=== PATIENT | female | born 1975 | race Caucasian/White ===

== ENCOUNTER 2022-02-18 07:19 | Day surgery (SDC) | payer OTHER ==
[~2022-02-18] VITALS: Ht 175.3 cm; Wt 123.0 kg
[~2022-02-18 07:19] MED LIST: BUPROPION XL300 MG PO; COZAAR25 MG PO; EFFEXOR XR75 MG PO; MIRENA1 EACH IY; NAPROXEN500 MG PO; OMEPRAZOLE20 MG PO; ONDANSETRON HCL4 MG PO
--- NOTE | 2022-02-18 07:45 | NUR ---
BOTH NARES SWABBED FOR COVID-19 WITHOUT COMPLICATION. SAMPLE TAKEN TO LAB.
--- NOTE | 2022-02-18 10:20 | NUR ---
02/18/22 1020 Sheets,Brianna 1015 PT ARRIVED TO PACU WITH MICROMATIC HONE OPERATOR AT BEDSIDE, PT ASLEEP AND ORAL AIRWAY IN PLACE. PT NONAROUSABLE AND DECREASED BP. MICROMATIC HONE OPERATOR GIVING BP MEDICATION. 1020 BP INCREASED.
--- NOTE | 2022-02-19 07:04 | OR ---
[facility] [address] [place], [place] [address] Signed DATE OF OPERATION: 02/18/2022 SURGEON: Rashi Jarvis MD PREOPERATIVE DIAGNOSES: 1. History of peptic ulcer disease. 2. History of chronic diarrhea for many years, now with loose stool and mucus. 3. Post cholecystectomy right upper quadrant abdominal pain and generalized abdominal pain. 4. Heartburn with nausea and vomiting. 5. Paternal grandfather and maternal grandmother with colon cancer. POSTOPERATIVE DIAGNOSES: 1. Moderate-sized hiatal hernia (45-38 cm). 2. GE junction at 38 cm. 3. Small rectal polyps x2 at 6 cm. PROCEDURES: 1. Esophagogastroduodenoscopy with CLOtest and biopsies of the duodenum, pyloric bulb, antrum, and GE junction. 2. Colonoscopy with a random cold biopsies of the terminal ileum and colon as well as cold polypectomy. ESTIMATED BLOOD LOSS: None. INDICATIONS: Kayce is a 46-year-old obese female, who comes to the office with her . She was asked to see me for upper and lower endoscopy. She spoke of having COVID last year. She had has never been the same since. She describes stroke-like symptoms on her left face, eye, and upper extremity. She is not sure that her vision is quite completely recovered. She is describing fatigue as well. They took her off Adderall for the ADHD and send her to the studio technician video operator in [place] in December of 2021. Her echocardiogram and stress tests were unremarkable. She is going to see the interventional neuroradiologist in [place] for cerebral angiogram. She had been to her neurologist previously, and apparently has a mild neurocognitive disorder. She is now on disability. She has been under tremendous stress since 2011, but she said it really came to a combination with all the COVID issues. She had mention bleeding ulcers in the past. She said she has had chronic diarrhea for years. More recently, she is having loose stool with mucus 4-5 times a day. She had her gallbladder removed many years ago in [place], [place]. She Electronically Signed By: RASHI JARVIS MD 02/19/22 0704 PATIENT NAME: KAYCE JOHNSON OPERATIVE REPORT DATE OF : 77 REPORT #: [id number] PHYSICIAN: RASHI JARVIS MD PCP: JERRY JIMÉNEZ MD REPORT IS CONFIDENTIAL AND NOT TO BE RELEASED WITHOUT AUTHORIZATION [facility] [address] [place] [id number] Signed required an ERCP to remove common bile duct stones. She thinks maybe the ERCP was performed in [place], [place]. She describes having right upper quadrant abdominal pain and generalized abdominal pain. She does not relate it to food. She is not jaundiced. She describes heartburn and some nausea and vomiting as well. She never completed the stool studies. Her paternal grandfather and maternal grandmother had colon cancer. She has been using omeprazole and it seems of help some. She uses naproxen as needed. She has been on bupropion as well. In the office, I gave her a pamphlet on both upper and lower endoscopy. We reviewed the nature of the two tests. There is risk including, but not limited to gas bloating, crampy abdominal pain, bleeding, perforation requiring surgery, and missed diagnosis. She has been off her Adderall, we decided we would try with our standard Versed and fentanyl for her IV conscious sedation. She and her had expressed understanding and wished to proceed. DESCRIPTION OF PROCEDURE: Kayce was taken into our endoscopy suite and placed in the supine semi-recumbent position. She was given 9 mg of Versed and 100 mcg of fentanyl without any perceived effect whatsoever. We called in our anesthesia provider to help add propofol. Even then she took a large doses of propofol, but eventually she was just sedated, we were able to proceed. A bite block was utilized. The adult colonoscope was introduced and advanced down to the third portion of the duodenum. The duodenum and pyloric channel were unremarkable. We took a biopsy of the duodenum, pyloric channel due to the history of diarrhea. We took biopsies of the antrum for CLOtest as well as pathologic review. Upon retroflexion of scope, she appears to have a moderate-sized hiatal hernia. It was a little difficult to measure, but it seems to measure 45 cm back to 38 cm. Of course, that places the GE junction at 38 cm. She had some mild inflammatory changes around her GE junction and so we took a biopsy in that area as well. There was no Hubbard's mucosa. No distal esophagitis. The middle and upper esophagus were unremarkable. After this, the gas had been suctioned out and the gastroscope removed. Kayce tolerated the upper endoscopy quite well after the propofol. Kayce was rotated into the left lateral decubitus position. She was maintained on IV propofol per our nurse claim adjuster. A digital rectal exam was performed and this was unremarkable. She has no external hemorrhoids. She had good sphincter tone, there were no masses. The adult colonoscope was introduced, advanced all around into the cecum under direct visualization of camera without difficulty. Her prep was quite excellent. We turned the colonoscope into the terminal ilium about 10 cm or so. It looked very healthy. We took a random biopsy of the terminal ileum due to the history of diarrhea. We brought the scope back into the colon. We had taken pictures throughout for photodocumentation. We took random cold biopsies in the colon because of the history of diarrhea. Otherwise, no inflammatory changes, no diverticulosis, no colonic polyps. The rectum was unremarkable. Upon retroflexion of the scope, there was really no Electronically Signed By: RASHI JARVIS MD 02/19/2204 PATIENT NAME: KAYCE JOHNSON OPERATIVE REPORT DATE OF : 77 REPORT #: [id number] PHYSICIAN: RASHI JARVIS MD PCP: JERRY JIMÉNEZ MD REPORT IS CONFIDENTIAL AND NOT TO BE RELEASED WITHOUT AUTHORIZATION [facility] [address] [place], [place] [address] Signed additional pathology noted above the anal canal. After this, the gas was suctioned out, colonoscope removed. Again, Kayce tolerated the procedure well with the propofol infusion. RECOMMENDATIONS: I will see Kayce back in my office in 7 to 14 days to review her results. This appears to be irritable bowel syndrome most likely. Rashi Jarvis MD ALB/MODL /[id number] cc: Rashi Jarvis MD Patient Chart Namrata Ortiz MD Copies: RASHI JARVIS MD ~ Electronically Signed By: RASHI JARVIS MD 02/19/22 0704 PATIENT NAME: KAYCE JOHNSON OPERATIVE REPORT DATE OF : 77 REPORT #: [id number] PHYSICIAN: RASHI JARVIS MD PCP: JERRY JIMÉNEZ MD REPORT IS CONFIDENTIAL AND NOT TO BE RELEASED WITHOUT AUTHORIZATION
--- NOTE | 2022-02-24 15:13 | PATH ---
[facility] [address] [facility] [place], [place] [address] Signed SPECIMEN(S): A DUODENAL BIOPSY SPECIMEN(S): B DUODENAL BULB BIOPSY SPECIMEN(S): C ANTRUM/PYLORUS BIOPSY SPECIMEN(S): D GE JUNCTION BIOPSY SPECIMEN(S): E TERMINAL ILEUM BIOPSY SPECIMEN(S): F COLON BIOPSY SPECIMEN(S): G RECTAL POLYP AT 7 CM SPECIMEN SOURCE: A. DUODENAL BIOPSY B. DUODENAL BULB BIOPSY C. ANTRUM/PYLORUS BIOPSY D. GE JUNCTION BIOPSY E. TERMINAL ILEUM BIOPSY F. COLON BIOPSY G. RECTAL POLYP AT 7 CM CLINICAL HISTORY: Abdominal pain; nausea and vomiting; GERD; diarrhea; family history of colon cancer FINAL PATHOLOGIC DIAGNOSIS: A. Duodenum, biopsy: - No significant histopathology. B. Duodenal bulb, biopsy: - No significant histopathology. C. Stomach, antrum/pylorus, biopsy: - Chemical gastropathy. D. GE junction, biopsy: - Chronic esophagitis. - No evidence of Hubbard's esophagus. E. Terminal ileum, biopsy: - Lymphoid hyperplasia. F. Colon, biopsy: - No significant histopathology. B. Rectum, 7 cm, polypectomy: - Hyperplastic polyps (2). - There is no evidence of dysplasia or malignancy. COMMENT: Regarding specimens A and B, the sections from the duodenal biopsies show PATIENT NAME: ZOË JOHNSON PATHOLOGY DATE OF : 77 REPORT #: [id number] PHYSICIAN: ROSEMARY PATHOLOGY PCP: JERRY JIMÉNEZ MD REPORT IS CONFIDENTIAL AND NOT TO BE RELEASED WITHOUT AUTHORIZATION [facility] [address] [place], [place] [address] Signed portions of duodenal mucosa with long finger-like villi. There is no villous atrophy, crypt hyperplasia or intraepithelial lymphocytosis, making a diagnosis of celiac disease unlikely. There is no evidence of peptic duodenitis, microorganisms, abnormal infiltrates or neoplasia. Regarding specimen C, these sections reveal features of mild chemical gastropathy. The gastric pits appear slightly irregular, and there is mild mucosal congestion. There is no evidence of acute or chronic inflammation. Chemical gastropathies are most commonly seen in individuals with alkaline reflux, exposure to drugs as well as other chemicals. There is no acute or chronic inflammation. There is no evidence of H. pylori, intestinal metaplasia, abnormal infiltrates or neoplasia. Regarding specimen D, the biopsy contains reactive appearing squamous mucosa with mild ballooning degeneration. Prominent vascular lakes are present in the papillae. There is no glandular tissue present. The changes are nonspecific and can be seen in a variety of settings including infections, gastroesophageal reflux disease or other forms of esophagitis. Regarding specimen E, the sections through the ileal biopsy show portions of ileal mucosa with lymphoid hyperplasia. There is no evidence of extension of the lymphoid infiltrate into the glands. There is no evidence of acute inflammation, granulomas, or abnormal microorganisms. No viral inclusions are seen. There is no evidence of neoplasia. Lymphoid hyperplasia frequently makes the terminal ileum appear nodular at the time of endoscopy. Regarding specimen F, the sections from the specimen contain architecturally normal colonic mucosa without crypt distortion. There is no acute or chronic inflammation. There is no evidence of microscopic colitis. There are no abnormal organisms or infiltrates. There are no polyps or neoplasms. TWK:[id number] MICROSCOPIC EXAMINATION: Histologic sections of all submitted blocks are examined by light microscopy. These findings, together with the gross examination, support the pathologic diagnosis. GROSS DESCRIPTION: Seven specimens are received in 7 containers, labeled "AM." PATIENT NAME: ZOË JOHNSON PATHOLOGY DATE OF : 77 REPORT #: [id number] PHYSICIAN: ROSEMARY AREVALO PCP: JERRY JIMÉNEZ MD REPORT IS CONFIDENTIAL AND NOT TO BE RELEASED WITHOUT AUTHORIZATION [facility] [address] [place], [place] [address] Signed A. The specimen, labeled "AM, 1," and designated on the requisition "duodenum biopsy," is received in formalin and consists of two gonzalez soft tissue fragments that measure 0.2 and 0.3 cm in greatest dimension. The specimen is entirely submitted in cassette (A1). B. The specimen, labeled "AM, 2," and designated on the requisition "duodenum bulb biopsy," is received in formalin and consists of one gonzalez soft tissue fragment that measures 0.3 cm in greatest dimension. The specimen is entirely submitted in cassette (B1). C. The specimen, labeled "AM, 3," and designated on the requisition "antrum/pylorus biopsy," is received in formalin and consists of one elongated gonzalez soft tissue fragment that measures 0.6 cm in greatest dimension. The specimen is entirely submitted in cassette (C1). D. The specimen, labeled "AM, 4," and designated on the requisition "EG junction biopsy," is received in formalin and consists of one elongated, gonzalez-white to gonzalez soft tissue fragment that measures 0.6 cm in greatest dimension. The specimen is entirely submitted in cassette (D1). E. The specimen, labeled "AM, 5," and designated on the requisition "terminal ileum biopsy," is received in formalin and consists of one gonzalez soft tissue fragment that measures 0.4 cm in greatest dimension. The specimen is entirely submitted in cassette (E1). F. The specimen, labeled "AM, 6," and designated on the requisition "colon biopsy," is received in formalin and consists of three gonzalez soft tissue fragments that measure 0.3 up to 0.5 cm in greatest dimension. The specimen is entirely submitted in cassette (F1). G. The specimen, labeled "AM, 7," and designated on the requisition "colon rectum polypectomy 7 cm," is received in formalin and consists of two polypoid gonzalez soft tissue fragments that measure 0.2 cm in greatest dimension. The specimen is entirely submitted in cassette (G1). AI (under the direct supervision of a pathologist) The Gross Description was prepared using a voice recognition system. The report was reviewed for accuracy; however, sound-alike word errors, addition and/or deletions may occur. If there is any question about this report, please contact Client Services. PERFORMING LABORATORY: The technical component was performed by [employer], [address] [place] [id number] (CLIA# [id number]). The professional interpretation was performed by [facility], [facility], [facility] [address] [address] (CLIA#: PATIENT NAME: OZË JOHNSON PATHOLOGY DATE OF : 77 REPORT #: [id number] PHYSICIAN: ROSEMARY AREVALO PCP: JERRY JIMÉNEZ MD REPORT IS CONFIDENTIAL AND NOT TO BE RELEASED WITHOUT AUTHORIZATION [facility] [address] [place] [address] Signed [id number]). Diagnostician: Carlos Ring MD Pathologist Electronically Signed 02/24/2022 Copies: ~ PATIENT NAME: ZOË JOHNSON PATHOLOGY DATE OF : 77 REPORT #: [id number] PHYSICIAN: ROSEMARY PATHOLOGY PCP: JERRY JIMÉNEZ MD REPORT IS CONFIDENTIAL AND NOT TO BE RELEASED WITHOUT AUTHORIZATION
== END 2022-02-18 10:55 | disposition home or self-care (01) ==
LOC: DS 07:19 → OPS 07:19 → DS 09:00 → OPS 09:00
PROVIDERS: ATTEND Colon & Rectal Surgery
PROC: 0DB48ZX Excision of Esophagogastric Junction, Via Natural or Artificial Opening Endoscopic, Diagnostic (ICD-10-PCS; 2022-02-18)
PROC: 0DBB8ZX Excision of Ileum, Via Natural or Artificial Opening Endoscopic, Diagnostic (ICD-10-PCS; 2022-02-18)
PROC: 0DB98ZX Excision of Duodenum, Via Natural or Artificial Opening Endoscopic, Diagnostic (ICD-10-PCS; principal; 2022-02-18 09:00)
PROC: 0DB68ZX Excision of Stomach, Via Natural or Artificial Opening Endoscopic, Diagnostic (ICD-10-PCS; 2022-02-18 09:00)
DX: K44.9 Diaphragmatic hernia without obstruction or gangrene (principal); K62.1 Rectal polyp; K52.9 Noninfective gastroenteritis and colitis, unspecified; E66.9 Obesity, unspecified; F41.9 Anxiety disorder, unspecified; F43.10 Post-traumatic stress disorder, unspecified; Z88.2 Allergy status to sulfonamides; Z80.0 Family history of malignant neoplasm of digestive organs; Z20.822 Contact with and (suspected) exposure to COVID-19; Z68.41 Body mass index [BMI] 40.0-44.9, adult; K31.9 Disease of stomach and duodenum, unspecified
CPT/HCPCS: 00731; 36415; 84702; 84703; 87077; C9803; J2250; J2704; J3010; J7121; U0003

== ENCOUNTER 2022-03-18 05:45 | Day surgery (SDC) | payer OTHER ==
[~2022-03-18] VITALS: Ht 175.3 cm; Wt 119.5 kg
--- NOTE | ~2022-03-18 | OR ---
[facility] [address] [place], [place] [address] Draft DATE OF OPERATION: 03/18/2022 SURGEON: Samy Judge DO PREOPERATIVE DIAGNOSES: 1. Abnormal uterine bleeding. 2. Thickened endometrium. 3. Endometrial polyp. POSTOPERATIVE DIAGNOSES: 1. Abnormal uterine bleeding. 2. Thickened endometrium. 3. Endometrial polyp. PROCEDURES PERFORMED: 1. Total laparoscopic hysterectomy. 2. Bilateral salpingectomy. 3. Cystoscopy. CRYOGENICS REPAIRER: Jeanine Gong D.O. ANESTHESIA: General. ESTIMATED BLOOD LOSS: 75 mL. SPECIMENS: Normal uterus, cervix and bilateral fallopian tubes. DRAINS: Arias to gravity. FINDINGS: Normal external genitalia, vagina, and cervix. On laparoscopy, normal uterus, tubes, and bilateral ovaries. Some oozing from multiple small paracervical vessels after colpotomy, they were made hemostatic. Good hemostasis and apical support at the end of the procedure. Normal bladder with bilateral ureteral jets appreciated on cystoscopy. PATIENT NAME: ZOË BUTTS OPERATIVE REPORT DATE OF : 77 REPORT #: [id number] PHYSICIAN: SAMY JDUGE DO PCP: JERRY JIMÉNEZ MD REPORT IS CONFIDENTIAL AND NOT TO BE RELEASED WITHOUT AUTHORIZATION [facility] [address] [place], [place] [address] Draft COMPLICATIONS: None. INDICATIONS: Mrs. Butts is a pleasant 46-year-old female with a long history of abnormal uterine bleeding. She had a Mirena IUD in an attempt to control bleeding that failed. Hysteroscopy demonstrated a thickened endometrium with endometrial polyp. Decision was made to proceed with definitive treatment with total laparoscopic hysterectomy, bilateral salpingectomy, and cystoscopy. Risks, benefits, and alternatives were discussed in the detail with the patient. The patient understands and wished to proceed with the procedure. DESCRIPTION OF PROCEDURE: The patient was taken to the operating room, where a time-out was performed to confirm correct patient, correct procedure. General anesthesia was adequately established. The patient was prepped and draped in dorsal lithotomy position with feet in Yellofin stirrups. ICPs were on and running. The patient received Ancef 3 g preoperatively as well as heparin 5000 units. Arias catheter was inserted. A weighted speculum was placed in vagina and the anterior lip of the cervix grasped with Allis clamp. The cervix was serially dilated using Hegar dilators and the VCare uterine manipulator was placed without difficulty. The surgeon's gloves were changed and attention was turned to the abdomen. A 3 cm curvilinear incision was made approximately 2 cm below the umbilicus after infiltration with 0.25% Marcaine with epinephrine. The fascia was grasped, elevated, and entered sharply using Metzenbaum scissors. Stay sutures of 0 Vicryl placed in the superior and inferior edge of the incision. The peritoneum was then entered bluntly and a Barnett operative port was placed and pneumoperitoneum established without difficulty. Survey of the abdomen and pelvis was performed that demonstrated no significant intraabdominal adhesions and normal pelvis. A 5 mm insurance assistant port was placed in the left lower quadrant under direct visualization without complication. An 8 mm expanding port was placed in the right lower quadrant under direct visualization without complication. The left fallopian tube was grasped at the fimbriated end, elevated and dissected along the mesosalpinx and amputated at the cornu. This was delivered and sent to Pathology for further evaluation. The left uteroovarian ligament was fulgurated and divided. The left round ligament was fulgurated and divided. The process was repeated on the right side with fulguration and division of the fallopian tube with the right utero-ovarian ligament and the right round ligament. The leaves of the left broad ligament were then divided with the anterior leaf divided from the midline of the midportion of the round ligament to the angle of the cervical cup anteriorly and carried across the anterior edge of the vaginal cuff. The posterior leaf of the broad ligament was divided from the midpoint of the round ligament to the uterosacral ligament and across the posterior edge of the vaginal cup. The bladder was pushed well below the vaginal cup and the uterine vessels were identified, fulgurated PATIENT NAME: ZOË BUTTS OPERATIVE REPORT DATE OF : 77 REPORT #: [id number] PHYSICIAN: SAMY JUDGE DO PCP: JERRY JIMÉNEZ MD REPORT IS CONFIDENTIAL AND NOT TO BE RELEASED WITHOUT AUTHORIZATION [facility] [address], [place] [address] Draft and divided with excellent hemostasis. The process was repeated on the right with division of the leaves of the broad ligament, identification and fulguration of the uterine vessels. The uterus was blanched. Colpotomy was then performed using monopolar L hook with the LigaSure device following the green edge of the vaginal cup circumferentially. The uterus and cervix were delivered through the vagina and sent to Pathology for further evaluation. The vagina was stuffed with a wet lap in a glove to maintain pneumoperitoneum. Attention was then turned to the colpotomy repair. Several oozing vessels were noted and identified as paracervical vessels. These were fulgurated with careful identification of the anatomy with both bipolar and monopolar cautery, and hemostasis was appreciated. Colpotomy was then closed using the V-Loc suture with an Endostitch device with careful attention to incorporate the uterosacral ligaments bilaterally as well as to incorporate the vaginal epithelium with each bite. Small oozing vessel was noted after passage of the Endo Stitch needle through the anterior edge of the colpotomy. This was made hemostatic with bipolar cautery. Excellent hemostasis was appreciated and Tisseel was then applied to ensure hemostasis. The pneumoperitoneum was slowly reduced and hemostasis was again appreciated. Trocars were removed and infraumbilical fascia was reapproximated using 0-Vicryl in a running nonlocked manner. Skin was reapproximated using 4-0 Monocryl in subcuticular stitch with excellent hemostasis and cosmesis. Attention was then turned to cystoscopy. The Arias catheter was removed and a 70-degree cystoscope was placed under direct visualization through the urethral meatus into the bladder. Normal bladder was appreciated with intact dome. Bilateral ureteral jets were appreciated. The bladder was drained. Arias catheter was reinserted. The patient was taken to the PACU in good and stable condition. Sponge, needle, and instrument count was correct x2 at the end of the procedure. Dr. Gong was present and participated in all portions of the procedure. DO ZURI Santos/RADHA /[id number] Copies: PATIENT NAME: ZOË BUTTS OPERATIVE REPORT DATE OF : 77 REPORT #: [id number] PHYSICIAN: SAMY JUDGE DO PCP: JERRY JIMÉNEZ MD REPORT IS CONFIDENTIAL AND NOT TO BE RELEASED WITHOUT AUTHORIZATION [address] [address] Draft ~ PATIENT NAME: ZOË BUTTS OPERATIVE REPORT DATE OF : [birth year] REPORT #: [id number] PHYSICIAN: SAMY JUDGE DO PCP: JERRY JIMÉNEZ MD REPORT IS CONFIDENTIAL AND NOT TO BE RELEASED WITHOUT AUTHORIZATION
--- NOTE | 2022-03-18 10:18 | NUR ---
PT IS BACK TO DS FROM PACU. SHE HAS HER CALL LIGHT WITHIN REACH. IS AT THE BEDSIDE. REPORTS PAIN 7/10, WAS GIVEN DOSE OF PAIN MED PRIOR TO DC FROM PACU. PT WOULD LIKE TO TRY SOME PUDDING, WATER ON BEDSIDE TABLE. NO ADDITIONAL NEEDS OR CONCERNS.
--- NOTE | 2022-03-18 10:25 | NUR ---
03/18/22 1025 Maria De Jesus Franco 0936 PT ARRIVED IN PACU AWAKE C/O ABD PAIN INTENSE CRAMPS. ANESTHEISA AWARE AND GIVING MEDICATION. 0945 NO CHANGE IN PAIN. ANESTHESIA GIVING MEDICATIONS. 0959 C/O ABD PAIN 8-9/10. DILAUDID 0.5MG GIVEN IVP. GLASSES RETURNED TO PT. 1007 PAIN DOWN TO 7/10. DILAUDID 0.5MG GIVEN IPV. 1015 TO DS. REPORT GIVEN TO RN.
[2022-03-18] MEDS ORDERED: HYDROCODON-ACE1 EA10 PO (10:52)
[2022-03-18] MEDS ORDERED: IBU800 MG PO (10:52)
--- NOTE | 2022-03-18 10:53 | NUR ---
LE 1030: PT'S MANE BALLOON IS EMPTIED OF 10ML NS. THE MANE IS REMOVED WITHOUT ISSUE. THERE IS 300MLS OF BRIGHT YELLOW URINE IN THE MANE BAG UPON DC.
--- NOTE | 2022-03-18 11:41 | NUR ---
LE 1115: PT HAS MET ALL DC CRITERIA AT THIS TIME. SHE IS EDUCATED ON HOW TO BEST DRESS HERSELF AND TO OPEN HER CURTAIN WHEN READY. LE 1130: PT IS GIVEN VERBAL AND WRITTEN DC INSTRUCTIONS. SHE AND HER HAVE NO QUESTIONS AT THIS TIME. SHE IS TAKEN TO PERSONAL TRUCK VIA WC, SHE IS ABLE TO TRANSFER HERSELF FROM WC TO PERSONAL TRUCK.
== END 2022-03-18 11:35 | disposition home or self-care (01) ==
LOC: DS 05:45
PROVIDERS: ATTEND Obstetrics & Gynecology
PROC: 0UT94ZZ Resection of Uterus, Percutaneous Endoscopic Approach (ICD-10-PCS; principal; 2022-03-18 07:30)
PROC: 0UT74ZZ Resection of Bilateral Fallopian Tubes, Percutaneous Endoscopic Approach (ICD-10-PCS; 2022-03-18 07:30)
DX: N84.0 Polyp of corpus uteri (principal); N93.9 Abnormal uterine and vaginal bleeding, unspecified; R93.89 Abnormal findings on diagnostic imaging of other specified body structures; Z20.822 Contact with and (suspected) exposure to COVID-19
CPT/HCPCS: 87502; J0131; J0690; J1100; J1170; J1644; J1885; J2001; J2250; J2405; J2704; J3010; J7121; U0003